=== PATIENT | female | born 1990 | race Two or more races ===

== ENCOUNTER 2022-08-15 16:33 | Inpatient (IN) | payer OTHER ==
[~2022-08-15] VITALS: Ht 165.1 cm; Wt 87.1 kg
[2022-08-15] MEDS ORDERED: PRENATAL TABLE1 EAC4 PO (18:33)
[2022-08-15] MEDS ORDERED: FOLIC ACID20 MG PO (18:34)
[2022-08-19] MEDS ORDERED: ACETAMINOPHEN-1 EAC2 PO (10:46)
== END 2022-08-19 11:38 | disposition home or self-care (01) | DRG 819 ==
LOC: LDR 16:33 → OB/GYN 08-16 11:30
PROVIDERS: ADMIT Obstetrics & Gynecology Maternal & Fetal Medicine; ATTEND Obstetrics & Gynecology Maternal & Fetal Medicine
PROC: 4A1HXCZ Monitoring of Products of Conception, Cardiac Rate, External Approach (ICD-10-PCS; 2022-08-15)
PROC: 0UVC7ZZ Restriction of Cervix, Via Natural or Artificial Opening (ICD-10-PCS; principal; 2022-08-16 08:00)
PROC: BY49ZZZ Ultrasonography of First Trimester, Single Fetus (ICD-10-PCS; 2022-08-18)
PROC: BU4CZZZ Ultrasonography of Uterus and Ovaries (ICD-10-PCS; 2022-08-18)
DX: O34.31 Maternal care for cervical incompetence, first trimester (principal); O36.80X0 Pregnancy with inconclusive fetal viability, not applicable or unspecified; Z3A.12 12 weeks gestation of pregnancy; Z20.822 Contact with and (suspected) exposure to COVID-19